=== PATIENT | female | born 1970 | race Caucasian/White ===

== ENCOUNTER → 2022-05-06 | Outpatient (CLI) | payer OTHER, SELFPAY ==
--- NOTE | 2022-05-06 07:45 | MRI_ITS ---
STUDY: MRI LEFT ANKLE WITHOUT CONTRAST REASON FOR EXAM: Lump at the lateral aspect of the ankle, left lateral ankle pain for one year. TECHNIQUE: Standardized fat and water weighted pulse sequences were obtained in all 3 orthogonal planes. COMPARISON: None. FINDINGS: There is prominence of the subcutaneous fat at the lateral aspect of the ankle (T1 axial images 17-21), suggestive of a superficial nonencapsulated lipoma. There is edema in the lateral subcutis adipose space. There is a small ganglion cyst at the dorsal lateral aspect of the talar neck (inversion recovery sagittal image 15) measuring 0.9 cm in AP dimension. There is a very small volume of fluid in the retromalleolar posterior tibialis tendon sheath (inversion recovery sagittal images 7, 8). The posterior tibialis tendon is morphologically normal. Normal flexor digitorum longus tendon. Normal flexor hallucis longus tendon. Normal peroneus longus and brevis tendons. Normal tibialis anterior tendon. Normal extensor hallucis longus tendon. Normal extensor digitorum longus tendons. Normal Achilles tendon and teno-osseous insertion. Normal plantar fascia. There is a plantar calcaneal enthesophyte. Normal intrinsic muscles of the rearfoot. Normal distal tibiofibular syndesmotic ligamentous complex. There is a chronic partial tear of the anterior talofibular ligament (T2 axial image 17). Normal calcaneofibular and posterior talofibular ligaments. There is edema in the sinus tarsi (inversion recovery sagittal images 13-15). Normal deltoid ligamentous complexes. Normal plantar calcaneonavicular (spring) ligament. There is a tibiotalar joint effusion (inversion recovery sagittal images 11-13). Normal talar dome. Normal subtalar articulations. Normal talonavicular articulation. Normal calcaneocuboid articulation. Normal navicular-cuneiform articulations. There is a small focus of subchondral bone edema of the second metatarsal base (inversion recovery sagittal image 10). 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 Prominence of the subcutaneous fat at the lateral aspect of the ankle suggestive of a superficial nonencapsulated lipoma. Very mild posterior tibialis tenosynovitis. Edema in the sinus tarsi. Small focus of subchondral bone edema of the second metatarsal base, a stress phenomenon. Tibiotalar joint effusion. Small ganglion cyst at the dorsal lateral aspect of the talar neck. Electronically Signed: Mirza Quigley MD at 10:56 EDT ,
== END | disposition home or self-care (01) ==
PROVIDERS: PCP Internal Medicine; Visit Provider Podiatrist
DX: S93.492A Sprain of other ligament of left ankle, initial encounter (principal); X58.XXXA Exposure to other specified factors, initial encounter; R22.42 Localized swelling, mass and lump, left lower limb
CPT/HCPCS: 73721

== ENCOUNTER 2022-08-16 14:21 | Emergency (ER) | payer OTHER, SELFPAY ==
[2022-08-16 14:22] VITALS: BP 159/110; PULSE 114; RESP 15; TEMP 36.6; O2SAT 96; BMI 45.5
--- NOTE | 2022-08-16 14:33 | EKG12_ITS ---
Test Reason : PALPS Blood Pressure : / mmHG Vent. Rate : 102 BPM Atrial Rate : 102 BPM P-R Int : 188 ms QRS Dur : 098 ms QT Int : 334 ms P-R-T Axes : 033 -22 020 degrees QTc Int : 435 ms Sinus tachycardia Inferior infarct , age undetermined Abnormal ECG Confirmed by IRENE ARROYO, JOSHUA ([id number]), editor school photograph HEATHER CORTEZ ([id number]) on 08/18/2022 8:04:06 AM Referred By: FREDY Confirmed By:JOSHUA BONILLA MD
--- NOTE | 2022-08-16 15:16 | EDS_ITS ---
HPI History of Present Illness Chief Complaint: Palpitations Informant: patient Onset/Context/Timing Onset: Month(s) Narrative Narrative: Patient presents with sensation that something is not right in her body. She had recently been on Lexapro for what was presumed to be anxiety. She tapered herself off of this medication. She states when she stopped taking this the aching pain across her shins stopped. She continues to have constant back pain across her back with occasional intermittent pains across her lower chest and vertically in both the left and right chest. Today she felt like her heart was racing and her blood pressure was elevated. She has an appointment to see her doctor on September 16. 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.) Social History Smoking Status: Unknown if ever smoked ROS ROS ED Constitutional Constitutional ED: Denies chills or fever(s) Eyes Eyes: Denies change in vision or discharge from eye(s) ENT ENT ED: Denies discharge from eye(s), rhinorrhea or sore throat Cardiovascular Cardiovascular: Reports chest pain, palpitations and racing heartbeat Respiratory/Chest Respiratory/Chest: Denies cough or dyspnea Gastrointestinal Gastrointestinal: Denies abdominal pain, diarrhea, nausea or vomiting Genitourinary Genitourinary ED: Denies difficulty urinating or dysuria Musculoskeletal Musculoskeletal: Reports back pain; Denies extremity pain Integumentary Denies Abrasions or rash Neurologic Neurologic: Denies headache(s) or weakness Psychiatric Psychiatric: Denies anxiety or depression Allergic/Immunologic Allergic/Immunologic ED: Denies lip swelling or urticaria EXAM Physical Exam Const Vital Signs: 08/16/22 14:22 08/16/22 15:41 Temperature 97.8 F Temperature Source Temporal Pulse Rate 114 H Respiratory Rate 15 Respiratory Effort Normal Non-Labored Blood Pressure 159/110 H Blood Pressure Mean 126 Pulse Ox 96 Oxygen Delivery Method Room Air Positive well nourished and well developed General Appearance ED: well developed HEENT Reports normocephalic and head/scalp atraumatic Eyes PERRL and EOMs intact bilaterally Neck supple Chest Wall inspection of chest normal and palpation of chest normal Resp normal respiratory effort and clear to auscultation bilaterally Cardio regular rate and regular rhythm GI normal to inspection, nondistended, normoactive bowel sounds Palpation: soft Back/Spine no CVA tenderness Extremity normal to inspection Neuro oriented x3 and no sensory deficits noted Sensorium / Orientation: alert Motor Exam: strength 5/5 throughout Psych mental status grossly normal Skin no rashes or lesions noted MDM MDM MDM Narrative Medical decision making narrative: 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 EKG, chest x-ray, lab work obtained. Lab Data Attestation: I reviewed the patient's lab results. Labs: Laboratory Results - last 24 hr 08/16/22 08/16/22 08/16/22 15:30 15:30 15:30 WBC 6.9 RBC 4.58 Hgb 12.9 Hct 40.8 MCV 89.1 MCH 28.2 MCHC 31.6 L RDW Std Deviation 45.4 H RDW Coeff of Nick 14.0 Plt Count 304 MPV 9.5 Immature Gran % (Auto) 0.400 Neut % (Auto) 60.2 Lymph % (Auto) 28.5 Hale % (Auto) 8.0 Eos % (Auto) 2.2 Baso % (Auto) 0.7 Absolute Neuts (auto) 4.1 Absolute Lymphs (auto) 1.95 Nucleated RBC % 0 Differential Comment 6.9 ESR 8 D-Dimer Quant (PE/DVT) 0.49 Sodium 143 Potassium 3.6 Chloride 111 H Carbon Dioxide 27.0 Anion Gap 5 BUN 13 Creatinine 0.84 Estim Creat Clear Calc 71.30 Est GFR (MDRD) Af Amer 92 Est GFR (MDRD) Non-Af 76 BUN/Creatinine Ratio 15.5 Glucose 83 Calcium 9.3 Troponin I High Sens 24 C-React Prot Ext Range 7.61 H TSH 3.73 Radiography Chest X-Ray - ED: 1 View, Read by ED Physician, Normal, Heart, Lungs and Mediastinum Diagnostic Testing: Clinical Impression(s) from Imaging Studies Chest X-Ray 08/16/22 15:20 IMPRESSION: Hyperinflation. The lungs are clear. Electronically Signed: Grupo Rinaldi MD at 15:37 EDT , EKG Initial EKG: Attestation: I personally reviewed and interpreted this EKG as follows: Interpretation: Sinus Tachycardia (Sinus tach at 102. No acute ischemia. Normal intervals.) Treatment and Re-Evaluation Narrative: Repeat evaluation patient resting comfortably. Heart rate is 84 and blood pressure is 133/87. Chest x-ray per my interpretation reveals no acute findings. Radiology interpretation is reviewed. EKG reveals no ischemia. CBC is normal. Chemistry studies unremarkable. Troponin, TSH, D-dimer all normal. Sed rate is normal but CRP is elevated at 7.61. I did discuss with the patient that it sounds like her symptoms may be autoimmune in nature as she complains of generalized inflammation and fatigue. I did recommend follow-up with primary care physician for further testing on this. Return instructions provided. Discharge Plan Triage Chief Complaint: Palpitations ED Provider: Beba Wagner Dx/Rx/DC Orders Clinical Impression: Atypical chest pain, Back pain Instructions: ED Chest Pain, Noncardiac, ED Back Pain (Acute or Chronic) Primary Care Provider: Katelyn Rios Referrals: Katelyn Rios MD [Primary Care Provider] - 1-2 Weeks Disposition Disposition: Home, Self Care
--- NOTE | 2022-08-16 15:20 | RAD_ITS ---
STUDY: X-RAY CHEST REASON FOR EXAM: Female, 52 years old. Chest pain and tachycardia. TECHNIQUE: Single AP portable view of the chest. COMPARISON: None. FINDINGS: Hyperinflation. There is no demonstrated pleural abnormality. Normal size heart. Normal mediastinum and anisa. Normal visualized pulmonary arteries. There is atherosclerotic tortuosity of the aortic arch and descending thoracic aorta. Normal visualized thoracic spine. Normal visualized ribs, clavicles, and shoulders. There is no demonstrated abnormality of the visualized soft tissue structures of the upper abdomen. RAD/Chest 1 View (Portable) IMPRESSION: Hyperinflation. The lungs are clear. Electronically Signed: Grupo Rinaldi MD at 15:37 EDT ,
[2022-08-16 15:41] LABS: Absolute Lymphocyte Count 1.95 X10^3/uL (0.83-4.51); Absolute Neutrophil Count 4.1 X10^3/uL (2.0-7.7); Basophil# 0.05 X10^3/uL; Basophil% 0.7 % (0-1); Eosinophil# 0.15 X10^3/uL; Eosinophils% 2.2 % (0-5); Hematocrit 40.8 % (37-47); Hemoglobin 12.9 g/dL (12.0-15.0); Lymphocyte # 1.95 X10^3/ul (0.83-4.51); Lymphocyte % 28.5 % (19-41); Mean Corp Hgb Conc 31.6 g/dL (32-36); Mean Corpuscular Hgb 28.2 pg (27.0-32.0); Mean Corpuscular Volume 89.1 fL (81-99); Mean Platelet Vol. 9.5 fl (6.2-12.0); Monocyte# 0.55 X10^3/uL; NRBC Flagged by Analyzer 0 % (0-5); Neutrophil # 4.12 X10^3/uL (2.7-7.7); Neutrophil % 60.2 % (47-70); Platelet Count 304 K/mm3 (150-450); RBC Distribution Width SD 45.4 fl (35.1-43.9); Red Blood Count 4.58 M/mm3 (4.2-5.4); White Blood Count 6.9 K/mm3 (4.4-11.0)
[2022-08-16 15:49] LABS: Differential Comment 6.9
[2022-08-16 15:50] LABS: Erythrocyte Sedimentation Rate 8 mm/hr (0-30)
[2022-08-16 15:56] LABS: D-Dimer Quantitative (DVT/PE) 0.49 FEU/ug/m (0.27-0.49)
[2022-08-16 16:08] LABS: Anion Gap 5 (5-15); BUN 13 mg/dL (7-18); BUN/Creat Ratio 15.5 RATIO (10-20); CRP 7.61 mg/L (0.0-3.0); Calcium,Total 9.3 mg/dL (8.5-10.1); Chloride 111 mmol/L (98-107); Creatinine, Serum 0.84 mg/dL (0.55-1.02); EST Glomerular Filtration Rate 76 mL/min (>60); Est Glom Filt Rate - Afr Amer 92 mL/min (>60); Glucose 83 mg/dL (74-106); Potassium 3.6 mmol/L (3.5-5.1); Sodium Level 143 mmol/L (136-145); Thyroid Stim Hormone (TSH) 3.73 uIU/mL (0.358-3.74); Troponin-I HS 24 pg/mL (3.0-54.0)
== END 2022-08-16 17:01 | disposition home or self-care (01) ==
PROVIDERS: Emergency Provider Emergency Medicine; PCP Internal Medicine; Visit Provider Emergency Medicine
DX: R07.89 Other chest pain (principal); M54.9 Dorsalgia, unspecified; F41.9 Anxiety disorder, unspecified; Z79.899 Other long term (current) drug therapy
CPT/HCPCS: 71045; 80048; 84443; 84484; 85025; 85379; 85652; 86140; 93005; 99284